=== PATIENT | male | born 1975 | race Caucasian/White ===

== ENCOUNTER 2016-10-31 14:28 | Emergency (ER) | payer OTHER ==
[~2016-10-31] VITALS: Ht 188 cm; Wt 95.3 kg
[2016-10-31 14:31] VITALS: TEMP 38.2; Ht 188 cm; Wt 95.3 kg
[2016-10-31] MEDS ORDERED: ACETAMINOPHEN 500 MG TAB PO STA (14:44)
[2016-10-31] MEDS ORDERED: SODIUM CHLORIDE 0.9% 1000ML 1,000 ML IV STA (14:44)
[2016-10-31 15:21] LABS: BASO % 0.6 %; BASO ABS # 0.05 K/uL (0-0.2); COMPLETE YES; EOS % 0.3 %; HEMATOCRIT 43.5 % (42-52); IG% 0.3 %; LYMPH % 12.9 %; MEAN CELL VOLUME 95.4 fL (80-100); MEAN CORPUSCULAR HEMOGLOBIN 33.1 pg (25-34); MEAN CORPUSCULAR HGB CONC 34.7 g/dl (32-36); MEAN PLATELET VOLUME 10.4 fL (7.4-10.4); MONO % 10.8 %; NEUT % 75.1 %; PLATELET COUNT 346 K/uL (130-400); RED BLOOD COUNT 4.56 M/uL (4.7-6.1); WHITE BLOOD COUNT 7.78 K/uL (4.8-10.8)
[2016-10-31 15:33] LABS: URINE APPEARANCE CLEAR (CLEAR); URINE BILIRUBIN NEG (NEG); URINE COLOR YELLOW; URINE PH 6.5 (4.5-7.5); URINE SPECIFIC GRAVITY 1.016 (1.000-1.030)
[2016-10-31 15:34] LABS: URINE EPITHELIAL CELL AUTO 0-5 /lpf (0-5); URINE NITRITE NEG (NEG); UROBILINOGEN NEG (NEG)
[2016-10-31 15:39] LABS: BUN/CREATININE RATIO 7.6 (10-20); CREATININE 1.2 mg/dl (0.60-1.40)
--- NOTE | 2016-10-31 15:40 | DIAGNOSTIC IMAGING REPORT ---
CHEST 2 VIEWS ROUTINE CLINICAL HISTORY: fever eval for pnea cough COMPARISON STUDY: No previous studies for comparison. FINDINGS: The bones soft tissues and hemidiaphragms are normal. The cardiomediastinal silhouette is normal. The lungs are clear. The pulmonary vasculature is normal. IMPRESSION: Negative chest. Electronically signed by: Sterling Garvin M.D. 10/31/2016 3:39 PM Dictated Date/Time: 10/31/2016 3:39 PM
[2016-10-31 15:42] LABS: MANUAL MICROSCOPIC REQUIRED? NO; REVIEW REQ? NO
[2016-10-31 16:11] LABS: LYME DISEASE AB IGG NEG (NEG)
[2016-10-31 16:15] LABS: LYME DISEASE AB IGM POS (NEG)
[2016-10-31] MEDS ORDERED: DOXY100C2 PO (16:34)
[2016-10-31 16:37] VITALS: BP 150/87; PULSE 82; O2SAT 96
[2016-10-31] MEDS ORDERED: DOXYCYCLINE HYCLATE 100 MG CAP PO ONE (16:45)
--- NOTE | 2016-10-31 19:57 | EMERGENCY ROOM VISIT NOTE ---
History Report prepared by Cata: Meliza Bernal Under the Supervision of: Dr. River Kearney M.D. First contact with patient: 14:36 Chief Complaint: FEVER Stated Complaint: FEVER,HEADACHE,MUSCLE SORNESS,STIFF NECK, COUGH History of Present Illness The patient is a 40 year old male who presents to the Emergency Room with complaints of a fever beginning 3 days ago. The patient also complains of chills , shivers, coughing, neck pain, body aches, and severe headaches. He also states that his skin and hair hurts. The patient reports throwing up once. He denies any urinary symptoms. He reports that he had a tick bite 2 weeks ago, and says that the tick may have been on him for a couple of days. After the bite , he states that he did not have a rash on his legs. The patient states that he took Ibuprofen this morning for his symptoms, with mild relief. The patient denies being in contact with any sick family. He states that he has no known medical problems. Source of History: patient Onset: 3 days ago Position: other (global) Quality: other (fever) Associated Symptoms: + chills, + headache, + cough, + neck pain, No urinary symptoms Review of Systems See HPI for pertinent positives & negatives. A total of 10 systems reviewed and were otherwise negative. Past Medical & Surgical Medical Problems: (1) Kidney stones Family History Cancer Kidney stones Social History Smoking Status: Never Smoker Alcohol Use: occasionally Occupation Status: unemployed Current/Historical Medications Scheduled Doxycycline Hyclate (Vibramycin), 100 MG PO BID Allergies Coded Allergies: No Known Allergies (Unverified , 10/31/16) Physical Exam Vital Signs Date Time Temp Pulse Resp B/P (MAP) Pulse Ox O2 Delivery O2 Flow Rate FiO2 10/31/16 16:37 82 18 150/87 96 Room Air 10/31/16 14:31 38.2 100 18 132/83 96 Room Air Physical Exam Constitutional: Vital signs reviewed. Eyes: Pupils are equal round reactive to light. Conjunctiva are noninjected. ENT: Pharynx is clear without erythema or exudate. Mucous membranes are moist. Respiratory: Clear to auscultation bilaterally. Breath sounds are equal bilaterally. Cardiovascular: Regular rate and rhythm. No rubs or gallops. GI: Soft, nondistended and nontender. Bowel sounds are present. Musculoskeletal: No peripheral edema. No lower extremity tenderness. Integumentary: No cyanosis. Neurological: The patient is awake and alert. Cranial nerves II-XII are intact. Motor is 5 out of 5 all extremities. Sensation is intact to light touch all extremities. Normal speech. No pronator drift. Negative Kernig and Brudzinski's sign. Psychiatric: Normal affect. Medical Decision & Procedures ER Provider Diagnostic Interpretation: X-ray results as stated below per interpretation by me and the radiologist: CHEST 2 VIEWS ROUTINE CLINICAL HISTORY: fever eval for pnea cough COMPARISON STUDY: No previous studies for comparison. FINDINGS: The bones soft tissues and hemidiaphragms are normal. The cardiomediastinal silhouette is normal. The lungs are clear. The pulmonary vasculature is normal. IMPRESSION: Negative chest. Electronically signed by: Sterling Garvin M.D. 10/31/2016 3:39 PM Dictated Date/Time: 10/31/2016 3:39 PM Laboratory Results 10/31/16 15:00 Red Blood Count 4.56, Mean Corpuscular Volume 95.4, Mean Corpuscular Hemoglobin 33.1, Mean Corpuscular Hemoglobin Concent 34.7, Mean Platelet Volume 10.4, Neutrophils (%) (Auto) 75.1, Lymphocytes (%) (Auto) 12.9, Monocytes (%) (Auto) 10.8, Eosinophils (%) (Auto) 0.3, Basophils (%) (Auto) 0.6, Neutrophils # (Auto ) 5.85, Lymphocytes # (Auto) 1.00, Monocytes # (Auto) 0.84, Eosinophils # (Auto ) 0.02, Basophils # (Auto) 0.05 10/31/16 15:00 Test 10/31/16 14:55 10/31/16 15:00 Influenza Type A Antigen Neg for Influ A (NEG) Influenza Type B Antigen Neg for Influ B (NEG) White Blood Count 7.78 K/uL (4.8-10.8) Red Blood Count 4.56 M/uL (4.7-6.1) Hemoglobin 15.1 g/dL (14.0-18.0) Hematocrit 43.5 % (42-52) Mean Corpuscular Volume 95.4 fL (80-100) Mean Corpuscular Hemoglobin 33.1 pg (25-34) Mean Corpuscular Hemoglobin Concent 34.7 g/dl (32-36) Platelet Count 346 K/uL (130-400) Mean Platelet Volume 10.4 fL (7.4-10.4) Neutrophils (%) (Auto) 75.1 % Lymphocytes (%) (Auto) 12.9 % Monocytes (%) (Auto) 10.8 % Eosinophils (%) (Auto) 0.3 % Basophils (%) (Auto) 0.6 % Neutrophils # (Auto) 5.85 K/uL (1.4-6.5) Lymphocytes # (Auto) 1.00 K/uL (1.2-3.4) Monocytes # (Auto) 0.84 K/uL (0.11-0.59) Eosinophils # (Auto) 0.02 K/uL (0-0.5) Basophils # (Auto) 0.05 K/uL (0-0.2) RDW Standard Deviation 43.7 fL (36.4-46.3) RDW Coefficient of Variation 12.6 % (11.5-14.5) Immature Granulocyte % (Auto) 0.3 % Immature Granulocyte # (Auto) 0.02 K/uL (0.00-0.02) Urine Color YELLOW Urine Appearance CLEAR (CLEAR) Urine pH 6.5 (4.5-7.5) Urine Specific [place] 1.016 (1.000-1.030) Urine Protein NEG (NEG) Urine Glucose (UA) NEG (NEG) Urine Ketones NEG (NEG) Urine Occult Blood TRACE (NEG) Urine Nitrite NEG (NEG) Urine Bilirubin NEG (NEG) Urine Urobilinogen NEG (NEG) Urine Leukocyte Esterase NEG (NEG) Urine WBC (Auto) 1-5 /hpf (0-5) Urine RBC (Auto) 0-4 /hpf (0-4) Urine Hyaline Casts (Auto) 0 /lpf (0-5) Urine Epithelial Cells (Auto) 0-5 /lpf (0-5) Urine Bacteria (Auto) NEG (NEG) Anion Gap 10.0 mmol/L (3-11) Est Creatinine Clear Calc Drug Dose 97.1 ml/min Estimated GFR () 88.4 Estimated GFR (Non- 76.3 BUN/Creatinine Ratio 7.6 (10-20) Calcium Level 9.0 mg/dl (8.5-10.1) Lipase 142 U/L (73-393) Lyme Disease IgG Antibody NEG (NEG) Laboratory results as reviewed by me. Medications Administered Medications (Trade) Dose Ordered Sig/Juan Jose Route Start Time Stop Time Status Last Admin Dose Admin Sodium Chloride 1,000 ml @ 999 mls/hr Q1H1M STAT IV 10/31/16 14:44 10/31/16 15:44 DC 10/31/16 15:17 999 MLS/HR Acetaminophen (Tylenol Tab) 1,000 mg NOW STAT PO 10/31/16 14:44 10/31/16 14:48 DC 10/31/16 15:18 1,000 MG Doxycycline Hyclate (Vibramycin Cap) 100 mg ONE ONCE PO 10/31/16 16:45 10/31/16 16:46 DC 10/31/16 16:43 100 MG ED Course 1430: The patient was evaluated in room A9. A complete history and physical exam was performed. 1444: Ordered Tylenol Tab 1,000 mg PO, Sodium Chloride 1,000 ml @ 999 mls/hr IV. 1633: I discussed the test results with the patient. He states that his headache is completely resolved at this time. 1645: Ordered Vibramycin Cap 100 mg PO. 1647: Upon reevaluation, the patient appeared to have improvement of his symptoms. I discussed tonight's findings with him. He verbalized agreement of the treatment plan. He was discharged home. Medical Decision This is a 40-year-old male presents with headache and fever. Differential diagnosis includes Lyme disease, encephalitis, meningitis, influenza, viral syndrome, pneumonia. I did perform a limited focused review of portions of the patient's old chart on the electronic medical record. The patient has had no prior visits. Blood Pressure Screening: Patient was found to have an elevated blood pressure and was referred to their primary doctor for recheck and further treatment. Medication Reconciliation: I attest that I have personally reviewed the patient' s current medication list. I did evaluate the patient as noted above. The patient is presenting with a headache, diffuse myalgias and fever. He did have a tick bite recently. IV access was established. I did order and personally review the patient's chest x -ray as described above. I did order and review the patient's blood work as noted in the electronic medical record. His white blood cell count is not elevated. Lyme IgM is positive. Flu swab is negative. Urinalysis is negative. I did treat patient with normal saline IV. He was also given Tylenol. I did reassess the patient. He states that his headache is completely resolved at this time. Given that his headache is resolved with fluids and Tylenol I did not feel meningitis or encephalitis was likely. I did discuss this with the patient and his and discussed lumbar puncture which they agreed was not indicated currently. Should his symptoms worsen he will return. In the meantime we will treat him for Lyme disease. He was given doxycycline here and discharged with a prescription for 21 days of doxycycline. He was advised follow closely with his doctor. He was given return instructions as outlined below. Impression Primary Impression: Lyme disease Scribe Attestation The scribe's documentation has been prepared under my direct and personally reviewed by me in its entirety. I confirm that the note above accurately reflects all work, treatment, procedures, and medical decision making performed by me. Departure Information Dispostion Home / Self-Care Prescriptions Doxycycline Hyclate (VIBRAMYCIN) 100 Mg Cap 100 MG PO BID for 21 Days, #42 CAP Prov: River Kearney M.D. 10/31/16 Forms HOME CARE DOCUMENTATION FORM, IMPORTANT VISIT INFORMATION Patient Instructions My [facility] Additional Instructions You have been examined and treated today on an emergency basis only. This is not a substitute for, or an effort to provide, complete comprehensive medical care. It is impossible to recognize and treat all injuries or illnesses in a single emergency department visit. It is therefore important that you follow up closely with your physician. Call as soon as possible for an appointment. Return for worsening symptoms or if you develop chest pain, shortness of breath , palpitations, or any other concerning symptoms.
[2016-11-03 22:59] LABS: 18KDIGG BAND NONREACTIVE (NONREACTIVE); 23KDIGG BAND NONREACTIVE (NONREACTIVE); 23KDIGM BAND REACTIVE (NONREACTIVE); 28KDIGG BAND NONREACTIVE (NONREACTIVE); 30KDIGG BAND NONREACTIVE (NONREACTIVE); 39KDIGG BAND NONREACTIVE (NONREACTIVE); 39KDIGM BAND NONREACTIVE (NONREACTIVE); 41KDIGG BAND REACTIVE (NONREACTIVE); 41KDIGM BAND NONREACTIVE (NONREACTIVE); 45KDIGG BAND NONREACTIVE (NONREACTIVE); 58KDIGG BAND NONREACTIVE (NONREACTIVE); 66KDIGG BAND REACTIVE (NONREACTIVE); 93KDIGG BAND NONREACTIVE (NONREACTIVE)
== END 2016-10-31 16:48 | disposition home or self-care (01) ==
LOC: C.EDB 14:30 → C.EDA 16:48
DX: A69.20 Lyme disease, unspecified (principal); Z87.442 Personal history of urinary calculi; Z84.1 Family history of disorders of kidney and ureter